=== PATIENT | female | born 1970 | race Caucasian/White ===

== ENCOUNTER 2018-09-16 11:50 | Emergency (ER) | END 2018-09-16 13:08 | disposition home or self-care (01) ==

== ENCOUNTER 2019-04-15 13:30 | Emergency (ER) | payer OTHER ==
[~2019-04-15] VITALS: Ht 157.5 cm; Wt 93.8 kg
[~2019-04-15 13:30] MED LIST: METF500T24 PO; NAPR-688 PO; SITA100T11 PO; TRAM50TA2 PO; [UNRECOGNIZED DRUG - REMARK]
[2019-04-15 13:47] VITALS: BP 132/81; PULSE 77; RESP 18; Ht 157.5 cm; Wt 93.8 kg
[2019-04-15] MEDS ORDERED: HYDR-4011 PO (14:26)
[2019-04-15] MEDS ORDERED: CLIN300C10 PO (14:26)
[2019-04-15] MEDS ORDERED: LIDOCAINE 1% (MPF) 5 ML VIAL INJ ONE (14:30)
[2019-04-15] MEDS ORDERED: CEFTRIAXONE 1 GM INJ IM ONE (14:30)
--- NOTE | 2019-04-15 14:34 | ERD ---
ER Documentation Chief Complaint Chief Complaint dental pain swollen right jaw, taking pencillin HPI 48-year-old female presenting with dental pain to the right jaw. She started taking penicillin yesterday but has had continued worsening pain. She denies any fevers. She denies any airway trouble or difficulties breathing or swallowing. Patient is diabetic on insulin and pills. NKDA. Surgical history . Social history denies ROS All systems reviewed and are negative except as per history of present illness. Medications Home Meds Active Scripts Hydrocodone/Acetaminophen (Zap 5-325 Tablet) 1 Each Tablet, 1 TAB PO Q6H PRN for PAIN, #7 TAB Prov:CAROLINA GROVER PA-C 04/15/19 Clindamycin Hcl* (Clindamycin Hcl*) 300 Mg Capsule, 300 MG PO TID for 10 Days, CAP Prov:CAROLINA GROVER PA-C 04/15/19 Tramadol HCl (Tramadol HCl) 50 Mg Tablet, 50 MG PO Q4 PRN for PAIN, #20 TAB Prov:CLARE TAVAREZ MD 09/16/18 Reported Medications [Pt States No Changes] No Conflict Check 04/10/12 Sitagliptin* (Januvia*) 100 Mg Tablet, 100 MG PO DAILY 09/07/11 Metformin Hcl* (Metformin Hcl*) 500 Mg Tablet, 500 MG PO BID 09/07/11 Naproxen* (Naproxen*) 500 Mg Tablet, PO TID 09/07/11 Allergies Allergies: Coded Allergies: No Known Drug Allergies (Verified Allergy, 09/07/11) PMhx/Soc History of Surgery: No Anesthesia Reaction: No Hx Neurological Disorder: No Hx Respiratory Disorders: No Hx Cardiac Disorders: No Hx Psychiatric Problems: No Hx Miscellaneous Medical Probl: Yes (DM, HLD) Hx Alcohol Use: No Hx Substance Use: No Hx Tobacco Use: No FmHx Family History: No diabetes, No coronary disease, No other Physical Exam Vitals Vital Signs Date Temp Pulse Resp B/P (MAP) Pulse Ox O2 O2 Flow FiO2 Time Delivery Rate 04/15/19 97.4 77 18 132/81 99 13:47 (98) Physical Exam GENERAL: The patient is well-appearing, well-nourished, in no acute distress HEENT: Atraumatic. Conjunctivae are pink. Pupils equal, round, and reactive to light. There is no scleral icterus. Tympanic membranes clear bilaterally. Oropharynx clear. Swelling noted to right cheek. NECK: C-spine is soft and supple. There is no meningismus. There is no cervical lymphadenopathy. CHEST: Clear to auscultation bilaterally. There are no rales, wheezes or rhonchi. HEART: Regular rate and rhythm. No murmurs, clicks, rubs or gallops. Results 24 hrs Current Medications Medications Dose Sig/Connor Start Time Status Last (Trade) Ordered Route PRN Stop Time Admin Dose Reason Admin Ceftriaxone 1 gm ONCE ONCE 04/15/19 Sodium IM 14:30 (Rocephin) 04/15/19 14:31 Lidocaine 5 ml ONCE ONCE 04/15/19 (Xylocaine INJ 14:30 1% (Mpf)) 04/15/19 14:31 Procedures/MDM ER course: Rocephin given in ED. MDM: 48-year-old female presenting with pain to the right upper jaw space. Patient has a dental abscess. Patient is told to follow-up with dental clinic tomorrow. I will change her antibiotics. Patient was discharged with strong pain medications. Patient is told symptoms change or worsen to return immediately to the ER. All questions answered at discharge Departure Diagnosis: Primary Impression: Dental abscess Condition: Stable Patient Instructions: Dental Abscess W/ Facial Cellulitis Additional Instructions: FOLLOW UP WITH YOUR PRIMARY CARE PHYSICIAN TOMORROW.Return to this facility if you are not improving as expected. CAROLINA GROVER PA-C April 15, 2019 14:34
== END 2019-04-15 15:22 | disposition home or self-care (01) ==
LOC: FTE 13:30
DX: K04.7 Periapical abscess without sinus (principal); E11.9 Type 2 diabetes mellitus without complications; Z79.84 Long term (current) use of oral hypoglycemic drugs
CPT/HCPCS: 96372; J0696; Z7502; Z7610